=== PATIENT | male | born 1980 | race Caucasian/White ===

== ENCOUNTER 2016-10-05 19:30 | Emergency (ER) | payer SELFPAY ==
[~2016-10-05] VITALS: Ht 175.3 cm; Wt 65.0 kg
[~2016-10-05 19:30] MED LIST: BACT800T5 PO; TAB-TAB PO
[2016-10-05 19:31] VITALS: BP 125/66; PULSE 88; RESP 18; TEMP 98; O2SAT 97
--- NOTE | 2016-10-05 21:15 | RADRPT ---
EXAM DATE/TIME: 10/05/2016 21:15 [place] COMPARISON: No previous studies available for comparison. INDICATIONS : Right Foot pain after stepping on nail, base of 4th metatarsal area. MEDICAL HISTORY : None. SURGICAL HISTORY : None. ENCOUNTER: Initial ACUITY: 1 day PAIN SCORE: 7/10 LOCATION: Right Foot. FINDINGS: Three view examination of the right foot demonstrates no soft tissue swelling, dislocation, or fractu re. The tarsal bones appear intact. The interphalangeal and metatarsophalangeal joints are intact. The calcaneus is intact. Bony mineralization is normal. There is no radiopaque foreign body. CONCLUSION: Negative for radiopaque foreign body. Martin Clark MD FACR on October 05, 2016 at 21:13 Board Certified Radiologist. This report was verified electronically.
[2016-10-05] MEDS ORDERED: IBUP800T23 PO (21:40)
[2016-10-05] MEDS ORDERED: CIPR-9 PO (21:40)
[2016-10-05] MEDS ORDERED: HYDR-3533 PO (21:40)
[2016-10-05] MEDS ORDERED: TETANUS/DIPHTHERIA TOXOID ADULT 0.5 ML VIAL IM ONE (21:45)
[2016-10-05] MEDS ORDERED: CIPROFLOXACIN 500 MG TAB PO ONE (21:45)
[2016-10-05] MEDS ORDERED: ACETAMINOPHEN/HYDROcodone 325 MG/5 MG TAB PO ONE (21:45)
--- NOTE | 2016-10-05 21:49 | PD ---
HPI Chief Complaint: Skin Problem Time Seen by Provider: 21:40 Travel History International Travel<30 days: No Contact w/Intl Traveler<30days: No Traveled to known affect area: No History of Present Illness HPI 35-year-old white male presents to emergency department for evaluation of a plantar puncture wound to his right foot which occurred prior to arrival. He states that he has stepped on a wooden board with a long tiny screw. He states that it punctured through his rubber so shoes into the plantar surface of his distal forefoot. He states that he has pain with movement of his right middle toe. He has not had a tetanus shot in over 5 years. He denies any numbness or tingling. Pain is moderate. No drainage. PFSH Past Medical History Medical History: Denies Significant Hx Tetanus Vaccination: > 5 Years Past Surgical History Surgical History: No Previous Surgery Social History Alcohol Use: No Tobacco Use: Yes Allergies-Medications (Allergen,Severity, Reaction): Coded Allergies: Penicillamine (Verified Allergy, Mild, RASH, 01/10/15) Reported Meds & Prescriptions Reported Meds & Active Scripts Active Bactrim DS (Sulfamethoxazole-Trimethoprim DS) 1 Tab Tab 1 Tab PO Q12 7 Days Reported Multivitamin (Multivitamins) 1 Tab Tab 1 Tab PO DAILY Review of Systems Except as stated in HPI: all other systems reviewed are Neg Physical Exam Narrative GENERAL: This is a well-nourished, well-developed patient, in no apparent distress. SKIN: No rashes, ecchymoses or lesions. Warm and dry. HEAD: Atraumatic. Normocephalic. EYES: PERRL, EOMI, no discharge or injection. No scleral icterus. EARS: Clear NOSE: Nasal turbinates appear normal. THROAT: Mucosa pink and moist. Airway patent. NECK: Trachea midline. supple, moves head freely. LUNGS: Clear to auscultation. CV: Regular in rhythm. ABDOMEN: Soft nontender. EXT: No clubbing cyanosis or edema. Examination of the right plantar surface of the foot reveals a puncture wound over the distal third of the third metatarsal. There is no gross foreign body identified. Patient complains of pain with movement of the third toe. He has intact sensation with good distal pulses and Refill. Data Data Last Documented VS Vital Signs Date Time Temp Pulse Resp B/P Pulse Ox O2 Delivery O2 Flow Rate FiO2 1/14/17 19:31 98.0 88 18 125/66 97 Room Air Orders Foot, Complete ([id number]) (10/05/16 ) Acetamin-Hydrocod 325-5 Mg ([place] 5-325 (10/05/16 21:45) Ciprofloxacin (Cipro) (10/05/16 21:45) Crutches (10/05/16 21:38) MDM Medical Decision Making Medical Screen Exam Complete: Yes Emergency Medical Condition: Yes Medical Record Reviewed: Yes Interpretation(s) Right foot: Negative for fracture. No foreign body. Differential Diagnosis Differential diagnosis, cellulitis Plantar puncture wound, fracture, foreign body Narrative Course Patient's foot is cleansed by the nursing staff. His tetanus status is updated. He is given Cipro 500 and Lortab 5 mg by mouth. This is right foot plantar puncture wound I had a lengthy discussion with the patient and his significant other regarding risks and complications associated with plantar puncture wounds. They're aware that this is a high risk for infection and complications and that they need to be followed up within 48 hours or sooner if any problems. They verbally states understanding. Diagnosis Primary Impression: Puncture wound of plantar aspect of right foot Patient Instructions: General Instructions, Narcotic given in the ED Departure Forms: Tests/Procedures, Work Release Special Instructions: No work 2-3 days. Additional Instructions: Rest. Elevation. Ice packs for the next 3 days. Soak in Epsom salts twice daily. Daily wound care with soap and water. No weight-bearing and then progress to weight-bearing as tolerated. Medications as directed Follow-up with a reimbursement rep in 48 hours or a primary care doctor. Return to the ER if any problems Med/Other Pt SpecificInfo: Prescription(s) given Scripts Ibuprofen 800 Mg [id number] Mg PO Q8H PRN (Pain/Inflammation) #30 TAB Prov:Andre Reis MD 10/05/16 Hydrocodone-Acetaminophen (Lortab)5-325 Mg Tab1 Tab PO Q4H PRN (PAIN) #12 TAB Prov:Andre Reis MD 10/05/16 Ciprofloxacin (Cipro)500 Mg Two020 Mg PO BID #14 TAB Prov:Andre Reis MD 10/05/16 Disposition: 01 DISCHARGE HOME Condition: Stable Guanako Schuster Oct 05, 2016 21:49
== END 2016-10-05 22:31 | disposition home or self-care (01) ==
LOC: NEPB 19:30
DX: S91.331A Puncture wound without foreign body, right foot, initial encounter (principal); W45.0XXA Nail entering through skin, initial encounter; Z23 Encounter for immunization
CPT/HCPCS: 73630; 90471; 90714; 99283; E0113